=== PATIENT | female | born 1955 | race Caucasian/White ===

== ENCOUNTER → 2017-07-25 | Outpatient (CLI) | payer OTHER | LOC: MC.RAD 08:20 | DX: Z12.31 Encounter for screening mammogram for malignant neoplasm of breast (principal) ==

== ENCOUNTER → 2018-03-29 | Outpatient (CLI) | payer OTHER | LOC: COL.CARD 12:19 | DX: R55 Syncope and collapse (principal) ==

== ENCOUNTER 2018-07-17 06:56 | Outpatient (CLI) | payer OTHER ==
[~2018-07-17] VITALS: Ht 162.6 cm; Wt 81.4 kg
[2018-07-17] MEDS ORDERED: REQUIP2 MG PO (07:46)
[2018-07-17] MEDS ORDERED: CALCIUM 600MG+D1 TAB PO (07:46)
[2018-07-17] MEDS ORDERED: OMEGA-3 FISH1000 MG PO (07:47)
[2018-07-17] MEDS ORDERED: SINEQUAN 1010 MG/CAP PO (07:48)
[2018-07-17] MEDS ORDERED: PROTONIX 40MG T40 MG PO (07:49)
[2018-07-17] MEDS ORDERED: VITAMIN D 1001000 IU PO (07:49)
[2018-07-17] MEDS ORDERED: ASPIRIN 81M81 MG/TA2 PO (07:50)
[2018-07-17 08:14] VITALS: BP 117/74; PULSE 67; TEMP 97.3
[2018-07-17 08:56] VITALS: BP 113/74; PULSE 70
== END 2018-07-17 10:00 | disposition home or self-care (01) ==
LOC: COL.CAR 06:56
DX: R55 Syncope and collapse (principal); R07.9 Chest pain, unspecified; E78.00 Pure hypercholesterolemia, unspecified; Z90.710 Acquired absence of both cervix and uterus; Z88.5 Allergy status to narcotic agent; Z88.6 Allergy status to analgesic agent; Z79.82 Long term (current) use of aspirin; Z87.891 Personal history of nicotine dependence; Z80.8 Family history of malignant neoplasm of other organs or systems; Z80.3 Family history of malignant neoplasm of breast; Z80.49 Family history of malignant neoplasm of other genital organs; Z80.42 Family history of malignant neoplasm of prostate; Z80.41 Family history of malignant neoplasm of ovary; Z82.49 Family history of ischemic heart disease and other diseases of the circulatory system

== ENCOUNTER 2018-07-24 06:49 | Outpatient (CLI) | payer OTHER ==
[~2018-07-24] VITALS: Ht 162.7 cm; Wt 80.6 kg
[~2018-07-24 06:49] MED LIST: ASPIRIN 81M81 MG/TA2 PO; CALCIUM 600MG+D1 TAB PO; OMEGA-3 FISH1000 MG PO; PROTONIX 40MG T40 MG PO; REQUIP2 MG PO; SINEQUAN 1010 MG/CAP PO; VITAMIN D 1001000 IU PO
[2018-07-24 08:21] VITALS: BP 98/69; PULSE 69; TEMP 98.6
[2018-07-24] MEDS ORDERED: CEPHALEXIN500 M1 PO (09:02)
[2018-07-24 09:04] VITALS: BP 100/71; PULSE 54; TEMP 98.1
== END 2018-07-24 09:14 | disposition home or self-care (01) ==
LOC: COL.CAR 06:49
DX: R55 Syncope and collapse (principal); E78.00 Pure hypercholesterolemia, unspecified; Z88.5 Allergy status to narcotic agent; Z88.6 Allergy status to analgesic agent; Z90.710 Acquired absence of both cervix and uterus; Z79.82 Long term (current) use of aspirin; Z87.891 Personal history of nicotine dependence; Z80.8 Family history of malignant neoplasm of other organs or systems; Z80.3 Family history of malignant neoplasm of breast; Z80.49 Family history of malignant neoplasm of other genital organs; Z82.49 Family history of ischemic heart disease and other diseases of the circulatory system; Z80.42 Family history of malignant neoplasm of prostate; Z80.41 Family history of malignant neoplasm of ovary

== ENCOUNTER → 2018-09-03 | Outpatient (CLI) | payer OTHER ==
[~2018-09-03] MED LIST changes: +CEPHALEXIN500 M1 PO
== END ==
LOC: MC.RAD 09:59
DX: Z12.31 Encounter for screening mammogram for malignant neoplasm of breast (principal); Z95.818 Presence of other cardiac implants and grafts

== ENCOUNTER → 2018-09-20 | Outpatient (CLI) | payer OTHER | LOC: COL.RAD 13:56 | DX: R55 Syncope and collapse (principal) ==

== ENCOUNTER 2018-10-18 03:06 | Inpatient (IN) | payer OTHER ==
[~2018-10-18] VITALS: Ht 162.6 cm; Wt 78.6 kg
[2018-10-18] VITALS (161 sets, daily range): BP systolic 84–123; BP diastolic 41–75; PULSE 59–74; TEMP 97.9–98.6; O2SAT 91–100
[2018-10-18] MEDS ORDERED: KEPPRA 500MG500 MG PO (03:25)
[2018-10-18] MEDS ORDERED: SINEQUAN 1010 MG/CAP PO (03:26)
[2018-10-18] MEDS ORDERED: AMITIZA 8MCG8 MCG PO (03:29)
[2018-10-18 04:04] LABS: PH 8 (5-8); SQUAMOUS EPITHELIAL None Seen /hpf; URINE APPEARANCE Clear; URINE BACTERIA None Seen /hpf; URINE BILIRUBIN Negative (NEGATIVE); URINE BLOOD Negative (NEGATIVE); URINE COLOR Straw; URINE GLUCOSE Negative (NEGATIVE); URINE KETONE Negative (NEGATIVE); URINE LEUKOCYTE ESTERASE Negative (NEGATIVE); URINE NITRATE Negative (NEGATIVE); URINE PROTEIN(semi-quant) Negative (NEGATIVE); URINE RBC 0-2 /hpf; URINE UROBILINOGEN Negative (NEGATIVE); URINE WBC 0-2 /hpf
[2018-10-18 04:06] LABS: AMORPHOUS CRYSTAL Present /uL
[2018-10-18 04:09] LABS: BASO # 0.1 (0.0-0.2); BASO % 0.8 % (0.0-2.0); EOS % 0.2 % (0-4.0); GRAN # 4.1 (1.4-6.5); GRAN % 62.9 % (42.2-75.2); HEMATOCRIT 41.7 % (37.0-47.0); HEMOGLOBIN 14.4 g/dl (12.5-16.0); LYMPH # 1.7 (1.2-3.4); MEAN CELL VOLUME 86 fl (80.0-100.0); MEAN CORPUSCULAR HEMOGLOBIN 30 pg (27.0-31.0); MEAN CORPUSCULAR HGB CONC 35 g/dl (33.0-37.0); MEAN PLATELET VOLUME 10.2 fl (7.4-10.4); MONO # 0.6 (0.1-0.6); MONO % 9.8 % (1.7-9.3); PLATELET COUNT 175 K/mm3 (130-400); RED BLOOD COUNT 4.88 M/mm3 (4.10-5.30); REDCELL DISTRIBUTION WIDTH-CV 12.2 % (11.5-14.5)
[2018-10-18 04:20] LABS: ALBUMIN 4.5 gm/dL (3.5-5.0); BILIRUBIN,TOTAL 0.6 mg/dL (0.0-1.0); CALCIUM 10.2 mg/dL (8.4-10.2); CREATININE, serum 0.76 mg/dL (0.52-1.25); TOTAL PROTEIN 7.9 gm/dL (6.4-8.2)
[2018-10-18 04:47] LABS: COLLECTION METHOD CLEAN CATCH
[2018-10-19 00:02] VITALS: BP 92/59
[2018-10-19 03:44] VITALS: BP 104/54; PULSE 63; TEMP 98
[2018-10-19 07:29] VITALS: BP 106/61; PULSE 62; TEMP 98.1
[2018-10-19] MEDS ORDERED: TYLENOL 8 HR PO (11:38)
== END 2018-10-19 12:43 | disposition home or self-care (01) | DRG 244 ==
LOC: COL.ER 03:06 → ICU 05:03 → MEDICAL 05:03
PROVIDERS: Emergency Medicine
PROC: 0JH606Z Insertion of Pacemaker, Dual Chamber into Chest Subcutaneous Tissue and Fascia, Open Approach (ICD-10-PCS; principal; 2018-10-18)
PROC: 02HK3JZ Insertion of Pacemaker Lead into Right Ventricle, Percutaneous Approach (ICD-10-PCS; 2018-10-18)
PROC: 02H63JZ Insertion of Pacemaker Lead into Right Atrium, Percutaneous Approach (ICD-10-PCS; 2018-10-18)
PROC: 0JPT02Z Removal of Monitoring Device from Trunk Subcutaneous Tissue and Fascia, Open Approach (ICD-10-PCS; 2018-10-18)
DX: I49.5 Sick sinus syndrome (principal); R00.1 Bradycardia, unspecified; G40.909 Epilepsy, unspecified, not intractable, without status epilepticus; G47.33 Obstructive sleep apnea (adult) (pediatric); K21.9 Gastro-esophageal reflux disease without esophagitis; Z85.828 Personal history of other malignant neoplasm of skin; E55.9 Vitamin D deficiency, unspecified; Z87.891 Personal history of nicotine dependence; E78.5 Hyperlipidemia, unspecified
CPT/HCPCS: 99222-AI; 99232-AI; 99239; J0690; J2250; J2405; J3010; J7030

== ENCOUNTER → 2018-12-11 | Outpatient (CLI) | payer OTHER ==
[~2018-12-11] MED LIST changes: +AMITIZA 8MCG8 MCG PO; +KEPPRA 500MG500 MG PO; +TYLENOL 8 HR PO
== END ==
LOC: COL.CARD 12-04 13:00
DX: R55 Syncope and collapse (principal)

== ENCOUNTER → 2019-10-02 | Outpatient (CLI) | payer OTHER | LOC: COL.RAD 10-01 13:15 | DX: M19.031 Primary osteoarthritis, right wrist (principal) ==

== ENCOUNTER → 2019-10-15 | Outpatient (CLI) | payer OTHER | LOC: MC.RAD 10-03 13:30 | DX: Z12.31 Encounter for screening mammogram for malignant neoplasm of breast (principal) ==

== ENCOUNTER → 2020-11-10 | Outpatient (CLI) | payer OTHER | LOC: MC.RAD 10-19 10:00 | DX: Z12.31 Encounter for screening mammogram for malignant neoplasm of breast (principal) ==

== ENCOUNTER → 2021-11-11 | Outpatient (CLI) | payer OTHER | LOC: MC.RAD 07:00 | DX: Z12.31 Encounter for screening mammogram for malignant neoplasm of breast (principal) ==

== ENCOUNTER → 2022-07-05 | Outpatient (CLI) | payer MEDICARE ==
[~2022-07-05] MED LIST changes: +DRAMAMINE LESS25 MG PO; +MAGNESIUM250 M1 PO; +MOBIC15 MG PO; +PROAMATINE 5MG T5 MG PO; +TOPROL XL 50MG50 MG PO; +ZOFRAN ODT4 MG PO
== END ==
LOC: COL.RAD 11:00
DX: K76.89 Other specified diseases of liver (principal); K57.30 Diverticulosis of large intestine without perforation or abscess without bleeding; R10.9 Unspecified abdominal pain
CPT/HCPCS: Q9967

== ENCOUNTER → 2023-01-01 | Outpatient (CLI) | payer BC | LOC: MC.RAD 06:54 | DX: Z12.31 Encounter for screening mammogram for malignant neoplasm of breast (principal) ==

== ENCOUNTER → 2024-04-08 | Outpatient (CLI) | payer MEDICARE, BC | LOC: MC.RAD 09:30 | DX: Z12.31 Encounter for screening mammogram for malignant neoplasm of breast (principal) ==